=== PATIENT | female | born 1955 | race Caucasian/White ===

== ENCOUNTER 2020-09-12 09:27 | Outpatient (CLI) | payer BC, SELFPAY ==
--- NOTE | ~2020-09-12 | MM_ITS ---
EXAMINATION: MM screening naveen LT w trish HISTORY: Screening mammogram; status post right mastectomy in 2009 TECHNIQUE: Craniocaudal and mediolateral oblique 3-D tomosynthesis images were obtained and synthetic 2-D images were generated. CAD analysis was submitted and interpreted. COMPARISON: 06/20/2010 bilateral digital screening mammogram BREAST PARENCHYMAL COMPOSITION: The left breast is heterogeneously dense, which may obscure small mas ses. FINDINGS: There is no evidence of suspicious mass, calcification, or architectural distortion to sugg est malignancy. There has been no suspicious interval change. IMPRESSION: 1. No mammographic evidence of malignancy. 2. Recommend routine screening mammography in one year. BI-RADS Category 1: Negative left breast Status post right mastectomy Reviewed, dictated and finalized at location A. [employer]
== END 2020-09-12 09:28 | disposition home or self-care (01) ==
PROVIDERS: PCP Family Medicine; Visit Provider Family Medicine
DX: Z12.31 Encounter for screening mammogram for malignant neoplasm of breast (principal)
CPT/HCPCS: 77063; 77067

== ENCOUNTER 2021-12-11 08:25 | Outpatient (CLI) | payer BC, SELFPAY ==
--- NOTE | ~2021-12-11 | MM_ITS ---
EXAMINATION: MM screening naveen LT w trish HISTORY: Screening mammogram; status post right mastectomy in 2009 TECHNIQUE: Craniocaudal and mediolateral oblique 3-D tomosynthesis images were obtained and synthetic 2-D images were generated. CAD analysis was submitted and interpreted. COMPARISON: 09/08/2020 left screening mammogram BREAST PARENCHYMAL COMPOSITION: The breasts are heterogeneously dense, which may obscure small masses . FINDINGS: There is no evidence of suspicious mass, calcification, or architectural distortion to sugg est malignancy in either breast. There has been no suspicious interval change. IMPRESSION: 1. No mammographic evidence of malignancy. 2. Recommend routine screening mammography in one year. BI-RADS Category 1: Negative Reviewed, dictated and finalized at location A. 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
== END 2021-12-11 08:26 | disposition home or self-care (01) ==
LOC: ANHIMG 08:27
PROVIDERS: PCP Family Medicine; Visit Provider Physician Assistant
DX: Z12.31 Encounter for screening mammogram for malignant neoplasm of breast (principal)
CPT/HCPCS: 77063; 77067

== ENCOUNTER → 2022-02-06 12:04 | Outpatient (CLI) | payer BC, SELFPAY ==
--- NOTE | ~2022-02-06 | DEXA_ITS ---
Bone Density Report Name: NORIS BERMAN Age: 66 Sex: Female Ethnicity: White Date of : 1955 Indication: postmenopausal osteoporosis; monitoring treatment; prior fracture; Referring Provider: Cherelle Torres Study: Bone densitometry was performed. Exam Date: February 06, 2022 Accession number: [id number] Bone Density: Region BMD T-score Z-score Classification AP Spine (L1-L4) 0.796 -2.3 -0.6 Osteopenia Femoral Neck (Left) 0.643 -1.9 -0.4 Osteopenia Total Hip (Left) 0.754 -1.5 -0.3 Osteopenia Femoral Neck (Right) 0.739 -1.0 0.5 Normal Total Hip (Right) 0.829 -0.9 0.3 Normal Total Hip Mean 0.792 -1.2 0.0 Osteopenia World Health Organization criteria for BMD impression classify patients as: Normal (T-score at or above -1.0), Osteopenia (T-score between -1.0 and -2.5), or Osteoporosis (T-score at or below -2.5). 10-year Fracture Risk: FRAX not reported because: Treated for osteoporosis Previous Exams: Region Exam Age BMD T-score BMD Change BMD Change Date g/cm2 vs Baseline vs Previous AP Spine(L1-L4) 02/06/2022 66 0.796 -2.3 0.046* 0.052* 09/18/2017 62 0.744 -2.8 -0.006 -0.037* 09/05/2015 60 0.781 -2.4 0.031* 0.008 09/02/2013 58 0.773 -2.5 0.023* -0.027* 07/12/2011 56 0.799 -2.3 0.050* 0.069* 08/16/2009 54 0.730 -2.9 -0.019 -0.019 03/30/2008 52 0.749 -2.7 Total Hip(Left) 02/06/2022 66 0.754 -1.5 0.033* -0.033* 09/18/2017 62 0.788 -1.3 0.066* 0.010 09/05/2015 60 0.777 -1.4 0.056* -0.007 09/02/2013 58 0.784 -1.3 0.062* 0.058* 07/12/2011 56 0.726 -1.8 0.004 -0.052* 08/16/2009 54 0.778 -1.3 0.056* 0.056* 03/30/2008 52 0.722 -1.8 Total Hip(Right) 02/06/2022 66 0.829 -0.9 0.089* -0.001 09/18/2017 62 0.829 -0.9 0.090* 0.024 09/05/2015 60 0.806 -1.1 0.066* -0.011 09/02/2013 58 0.816 -1.0 0.076* 0.032* 07/12/2011 56 0.784 -1.3 0.044* -0.013 08/16/2009 54 0.797 -1.2 0.057* 0.057* 03/30/2008 52 0.740 -1.7 *Denotes significance at 95% confidence level, LSC for AP Spine = 0.022 g/cm2, LSC for Total Hip = 0.027 g/cm2 Clinical Information Provided by Patient: Has had a low trauma fracture Is
== END ==
PROVIDERS: PCP Family Medicine; Visit Provider Physician Assistant
DX: M81.0 Age-related osteoporosis without current pathological fracture (principal); M85.88 Other specified disorders of bone density and structure, other site; M85.852 Other specified disorders of bone density and structure, left thigh
CPT/HCPCS: 77080

== ENCOUNTER 2023-01-28 15:58 | Outpatient (CLI) | payer MEDICARE, BC, SELFPAY ==
--- NOTE | ~2023-01-28 | MM_ITS ---
EXAMINATION: MM screening naveen BI w trish HISTORY: Screening mammogram, status post right mastectomy TECHNIQUE: Craniocaudal and mediolateral oblique 3-D tomosynthesis images of the left breast were obt ained and synthetic 2-D images were generated. CAD analysis was submitted and interpreted. COMPARISON: 12/11/2021, 09/12/2020 BREAST PARENCHYMAL COMPOSITION:The breast is heterogeneously dense, which may obscure small masses. FINDINGS: No suspicious mass, calcification, or architectural distortion are identified in the left b reast to suggest malignancy. There has been no suspicious interval change. IMPRESSION: No mammographic evidence of malignancy. Recommend routine screening mammography in one year. BI-RADS Category 1: Negative Reviewed, dictated and finalized at location .
== END 2023-01-28 15:59 | disposition home or self-care (01) ==
PROVIDERS: PCP Family Medicine; Visit Provider Family Medicine
DX: Z12.31 Encounter for screening mammogram for malignant neoplasm of breast (principal)
CPT/HCPCS: 77063; 77067

== ENCOUNTER 2024-02-07 10:23 | Outpatient (CLI) | payer MEDICARE, BC, SELFPAY ==
--- NOTE | ~2024-02-07 | MM_ITS ---
EXAMINATION: MM screening naveen LT w trish HISTORY: Screening mammogram; status post right mastectomy in 2009. TECHNIQUE: Craniocaudal, rotated lateral craniocaudal and mediolateral oblique 3-D tomosynthesis imag es were obtained and synthetic 2-D images were generated. CAD analysis was submitted and interpreted. COMPARISON: January 28, 2023, December 11, 2021 left screening mammogram examinations BREAST PARENCHYMAL COMPOSITION: The left breast is heterogeneously dense, which may obscure small mas ses. FINDINGS: There is no evidence of suspicious mass, calcification, or architectural distortion to sugg est malignancy. There has been no suspicious interval change. IMPRESSION: 1. Status post right mastectomy. No mammographic evidence of malignancy on the left. 2. Recommend routine left screening mammography in one year. BI-RADS Category 1: Negative Reviewed, dictated and finalized at location A.
== END 2024-02-07 10:24 | disposition home or self-care (01) ==
LOC: ANHIMG 10:27
PROVIDERS: PCP Family Medicine; Visit Provider Family Medicine
DX: Z12.31 Encounter for screening mammogram for malignant neoplasm of breast (principal)
CPT/HCPCS: 77063; 77067

== ENCOUNTER 2025-02-10 14:40 | Outpatient (CLI) | payer MEDICARE, BC, SELFPAY ==
--- NOTE | ~2025-02-10 | MM_ITS ---
EXAMINATION: MM screening naveen LT w trish HISTORY: Screening TECHNIQUE: Craniocaudal and mediolateral oblique 3-D tomosynthesis images were obtained and synthetic 2-D images were generated. CAD analysis was submitted and interpreted. COMPARISON: Comparison to multiple prior studies sequentially, with oldest reviewed study dated 08/21. BREAST PARENCHYMAL COMPOSITION: Dense: The left breast is heterogeneously dense, which may obscure sm all masses FINDINGS: There is no evidence of suspicious mass, calcification, or architectural distortion to sugg est malignancy in either the left breast. There has been no suspicious interval change. IMPRESSION: 1. No mammographic evidence of malignancy. 2. Recommend routine screening mammography in one year. BI-RADS Category 1: Negative Reviewed, dictated and finalized at location A.
--- OUTSIDE RECORDS SUMMARY | 2025-02-10 15:53 | XMS_ITS | Clinical Summary ---
Author Organization [facility] Address [address] [place] [address] Phone Care Team Providers Care Machine Stuffer Name Role Phone Chadnan Barraza MD Primary Care Provider [phone] Allergies No known active allergies Medications MULTIVITAMINS WITH FLUORIDE (MULTI-VITAMIN ORAL)Indications :Malignant neoplasm of breast (female), unspecified site Take by mouth. Active CALCIUM CARBONATE/VITAMI N D3 (CALCIUM + D ORAL)Indications :Malignant neoplasm of breast (female), unspecified site Take by mouth. Active metroNIDAZOLE (METROCREAM) 0.75 % Topical CreaIndications: Malignant neoplasm of breast (female), unspecified site Apply to affected area 2 times daily. Active alendronate sodium (ALENDRONATE ORAL) Take by mouth. Active Active Problems Patient Care Coordination No te Formatting of this note migh t be different from the original. 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 S/P right mastectomy 08/10/2010 Breast cancer, stage 1, right 08/10/2010 Overview (05/17/2011): PATHOLOGY: Date: 07/04 bx, 08/01 mastectomy Breast: right Cell type: IDC ER: (+) 95% PA: (+) 5% Her2 maxi: amplified Grade: I Lymph node status:(-) 8/8 (3 SLN, 5 ALN) LVI: (not) present Staging: T1a N0 Mx Stage: I Osteoporosis Arthritis Overview (07/18/2010): IN HER NECK Rosacea Family History Medical History Relation Name Comments Cancer Other MATERNAL GREAT GRANDMOTH Relation Name Status Comments Other MATERNAL GREAT GRANDMOTH Alive Social History Tobacco Use Types Packs/Day Years Used Date Smoking Tobacco: Never Smokeless Tobacco: Never Tobacco Cessation:Counseling Given: No Alcohol Use Standard Drinks/Week Comments No 0 (1 standard drink = 0.6 oz pur e alcohol) Comments No Sex and Gender Information Value Date Recorded Sex Assigned at Not on file Legal Sex Female 5:56 AM SANDBLASTING SUPERVISOR Gender Identity Not on file Sexual Orientation Not on file Occupation Industry Job Start Date Job End Date Not on file Not on file Not on file Not on file Last Filed Vital Signs Vital Sign Reading Time Taken Comments Blood Pressure 99/68 09/07/2019 10:26 AM SANDBLASTING SUPERVISOR Pulse 81 09/07/2019 10:26 AM SANDBLASTING SUPERVISOR Temperature 36.7 C (98.1 F) 08/24/2018 10:57 AM SANDBLASTING SUPERVISOR Respiratory Rate 16 08/24/2018 10:57 AM SANDBLASTING SUPERVISOR Oxygen Saturation 100% 08/02/2010 8:39 AM CDT Inhaled Oxygen Concentration - - Weight 70.6 kg (155 lb 9.6 oz) 09/07/2019 10:26 AM SANDBLASTING SUPERVISOR Height 163.8 cm (5' 4.5 ) 09/07/2019 10:26 AM CS T Body Mass Index 26.3 09/07/2019 10:26 AM SANDBLASTING SUPERVISOR Plan of Treatment Health Maintenance Due Date Last Done Comments DTAP/TDAP/TD VACCINES (1 - Tdap) 1976 COLORECTAL SCREENING 2002 Colorectal Cancer Screening 2002 FIT-DNA Q 3 years 2002 FIT/FOBT Q 1 year 2002 Flex Sig/CT Colonography Q 5 years 2002 PNEUMOCOCCAL VACCINE 50+ YEA RS (1 of 1 - PCV) 2007 ZOSTER VACCINE (1 of 2) 2007 BREAST CANCER SCREENING 09/07/2020 09/07/20, 08/24/2018, 08/19/2017, Additional history exists OSTEOPOROSIS SCREENING 2022 07/12/2011, 2008 INFLUENZA VACCINE (#1) 2024 RSV VACCINE (60+ or ) (1 - 1-dose 75+ series) 2032 Procedures Procedure Name Priority Date/Time Associated Diagnosis Comments MAMMO DIAG UNI LEFT 3D RACQUEL W OR WO CAD Routine 09/07/2019 10:02 AM SANDBLASTING SUPERVISOR Malignant neoplasm of right breast, stage 1, estrogen receptor positive (CMS/HCC) XR DEXA BONE DENSITY AXIAL 1 OR MORE SITES Routine 07/12/2011 from Last 3 Months or Most Recently Relevant to Health Maintenance Results * MAMMO DIAG UNI LEFT 3D RACQUEL W OR WO CAD (09/07/2019 10:02 AM SANDBLASTING SUPERVISOR) Anatomical Region Laterality Modality Breast Left Mammography 09/07/2019 10:0 2 AM SANDBLASTING SUPERVISOR Impressions 09/07/2019 2:04 PM SANDBLASTING SUPERVISOR IMPRESSION: 1. No concerning developing abnormality identified. OVERALL FINAL ASSESSMENT: BI-RADS CATEGORY 1 - Negative. RECOMMENDATION: 1. Recommend annual mammography. Narrative 09/07/2019 2:04 PM SANDBLASTING SUPERVISOR LEFT DIAGNOSTIC DIGITAL MAMMOGRAM WITH 3D TOMOSYNTHESIS AND CAD DATE: 09/07/2019 10:02 AM DICTATION LOCATION: [facility] HISTORY: Personal history of right-sided breast cancer treated with mastectomy, yearly exam. TECHNIQUE: Digital diagnostic mammograms were obtained of the left breast. 2D and 3D acquisitions of the left breast were obtained. CAD was utilized. COMPARISON: 08/24/2018 dating back to 07/02/2013. BREAST COMPOSITION: Heterogeneously dense, which limits the sensitivity of mammography. FINDINGS: No dominant masses, suspicious calcifications, parenchymal asymmetry or areas of architectural distortion are identified in the left breast. Procedure Note Fortunato Taylor MD - 09/07/2019 LEFT DIAGNOSTIC DIGITAL MAMMOGRAM WITH 3D TOMOSYNTHESIS AND CAD DATE: 09/07/2019 10:02 AM DICTATION LOCATION: [facility] HISTORY: Personal history of right-sided breast cancer treated with mastectomy, yearly exam. TECHNIQUE: Digital diagnostic mammograms were obtained of the left breast. 2D and 3D acquisitions of the left breast were obtained. CAD was utilized. COMPARISON: 08/24/2018 dating back to 07/02/2013. BREAST COMPOSITION: Heterogeneously dense, which limits the sensitivity of mammography. FINDINGS: No dominant masses, suspicious calcifications, parenchymal asymmetry or areas of architectural distortion are identified in the left breast. IMPRESSION: 1. No concerning developing abnormality identified. OVERALL FINAL ASSESSMENT: BI-RADS CATEGORY 1 - Negative. RECOMMENDATION: 1. Recommend annual mammography. us Lissette V. Kosuri DO MAMMO ORDERABLES Final Resu lt * XR DEXA BONE DENSITY AXIAL 1 OR MORE SITES (07/12/2011) T-SCORE HIP EXTERNAL RADIOLOGY Anatomical Region Laterality Modality Other us Lissette V. Kosuri DO DIAGNOSTIC IMAGING ORDERABL ES Final Result from Last 3 Months or Most Recently Relevant to Health Maintenance Insurance [employer] Advance Directives For more information, please contact: [phone] * Full Code (Latest Code Status on File) Date Activated Date Inactivated Comments 08/01/2010 1:18 PM 10/17/2010 12:50 PM * Full Code Date Activated Date Inactivated Comments 08/01/2010 8:15 AM 08/01/2010 1:18 PM * Full Code Date Activated Date Inactivated Comments 08/01/2010 8:15 AM 08/01/2010 8:15 AM Care Teams Machine Stuffer Relationship Specialty Start Date End Date Chandan Barraza MD [address] [place] [phone] PCP - General Family Practice 08/13/16
== END 2025-02-10 14:41 | disposition home or self-care (01) ==
PROVIDERS: PCP Family Medicine; Visit Provider Family Medicine
DX: Z12.31 Encounter for screening mammogram for malignant neoplasm of breast (principal)
CPT/HCPCS: 77063; 77067

== ENCOUNTER 2025-05-10 22:00 | Emergency (ER) | payer MEDICARE, BC, SELFPAY ==
--- OUTSIDE RECORDS SUMMARY | 2025-05-10 22:01 | XMS_ITS | Clinical Summary ---
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 S/P right mastectomy 08/10/2010 Breast cancer, stage 1, right 08/10/2010 Overview (05/17/2011): PATHOLOGY: Date: 07/04 bx, 08/01 mastectomy Breast: right Cell type: IDC ER: (+) 95% NH: (+) 5% Her2 maxi: amplified Grade: I [...] on file Legal Sex Female 5:56 AM CHEMICAL SPRAYER Gender Identity Not on file Sexual Orientation Not on file Occupation Industry Job Start Date Job End Date Not on file Not on file Not on file Not on file Last Filed Vital Signs Vital Sign Reading Time Taken Comments Blood Pressure 99/68 09/07/2019 10:26 AM CHEMICAL SPRAYER Pulse 81 09/07/2019 10:26 AM CHEMICAL SPRAYER Temperature 36.7 C (98.1 F) 08/24/2018 10:57 AM CHEMICAL SPRAYER Respiratory Rate 16 08/24/2018 10:57 AM CHEMICAL SPRAYER Oxygen Saturation 100% 08/02/2010 8:39 AM CDT Inhaled Oxygen Concentration - - Weight 70.6 kg (155 lb 9.6 oz) 09/07/2019 10:26 AM CHEMICAL SPRAYER Height 163.8 cm (5' 4.5) 09/07/2019 10:26 AM CS T Body Mass Index 26.3 09/07/2019 10:26 AM CHEMICAL SPRAYER Plan of Treatment Health Maintenance Due Date [...] SCREENING 2022 07/12/2011, 2008 INFLUENZA VACCINE (#1) 2025 RSV VACCINE (60+ or ) (1 - 1-dose 75+ series) 2032 Procedures Procedure Name Priority Date/Time Associated Diagnosis Comments MAMMO DIAG UNI LEFT 3D RACQUEL W OR WO CAD Routine 09/07/2019 10:02 AM CHEMICAL SPRAYER Malignant neoplasm of right breast, stage 1, estrogen receptor positive (CMS/HCC) XR DEXA BONE DENSITY AXIAL 1 OR MORE SITES Routine 07/12/2011 from Last 3 Months or Most Recently Relevant to Health Maintenance Results * MAMMO DIAG UNI LEFT 3D RACQUEL W OR WO CAD (09/07/2019 10:02 AM CHEMICAL SPRAYER) Anatomical Region Laterality Modality Breast Left Mammography 09/07/2019 10:0 2 AM CHEMICAL SPRAYER Impressions 09/07/2019 2:04 PM CHEMICAL SPRAYER IMPRESSION: 1. No concerning developing abnormality identified. OVERALL FINAL ASSESSMENT: BI-RADS CATEGORY 1 - Negative. RECOMMENDATION: 1. Recommend annual mammography. Narrative 09/07/2019 2:04 PM CHEMICAL SPRAYER LEFT DIAGNOSTIC DIGITAL MAMMOGRAM WITH 3D TOMOSYNTHESIS AND CAD DATE: 09/07/2019 10:02 AM DICTATION LOCATION: [facility] HISTORY: Personal history of right-sided breast [...] CAD DATE: 09/07/2019 10:02 AM DICTATION LOCATION: [facility] HISTORY: Personal history of right-sided breast [...] Advance Directives For more information, please contact: [phone] * Full Code (Latest Code Status on File) Date Activated Date Inactivated Comments 08/01/2010 1:18 PM 10/17/2010 12:50 PM * Full Code Date Activated Date Inactivated Comments 08/01/2010 8:15 AM 08/01/2010 1:18 PM * Full Code Date Activated Date Inactivated Comments 08/01/2010 8:15 AM 08/01/2010 8:15 AM Care Teams Microfabrication Engineer Manager Relationship Specialty Start Date End Date Chandan Barraza MD [address] [place] [phone] PCP - General Family Practice 08/13/16
[2025-05-10 22:19] VITALS: BP 132/74; PULSE 95; RESP 16; TEMP 36.9; O2SAT 100
--- OUTSIDE RECORDS SUMMARY | 2025-05-11 04:20 | XMS_ITS | Clinical Summary ---
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 S/P right mastectomy 08/10/2010 Breast cancer, stage 1, right 08/10/2010 Overview (05/17/2011): PATHOLOGY: Date: 07/04 bx, 08/01 mastectomy Breast: right Cell type: IDC ER: (+) 95% MO: (+) 5% Her2 maxi: amplified Grade: I [...] on file Legal Sex Female 5:56 AM HOME SCHOOL TEACHER Gender Identity Not on file Sexual Orientation Not on file Occupation Industry Job Start Date Job End Date Not on file Not on file Not on file Not on file Last Filed Vital Signs Vital Sign Reading Time Taken Comments Blood Pressure 99/68 09/07/2019 10:26 AM HOME SCHOOL TEACHER Pulse 81 09/07/2019 10:26 AM HOME SCHOOL TEACHER Temperature 36.7 C (98.1 F) 08/24/2018 10:57 AM HOME SCHOOL TEACHER Respiratory Rate 16 08/24/2018 10:57 AM HOME SCHOOL TEACHER Oxygen Saturation 100% 08/02/2010 8:39 AM CDT Inhaled Oxygen Concentration - - Weight 70.6 kg (155 lb 9.6 oz) 09/07/2019 10:26 AM HOME SCHOOL TEACHER Height 163.8 cm (5' 4.5) 09/07/2019 10:26 AM CS T Body Mass Index 26.3 09/07/2019 10:26 AM HOME SCHOOL TEACHER Plan of Treatment Health Maintenance Due Date [...] OR WO CAD Routine 09/07/2019 10:02 AM HOME SCHOOL TEACHER Malignant neoplasm of right breast, stage 1, estrogen receptor positive (CMS/HCC) XR DEXA BONE DENSITY AXIAL 1 OR MORE SITES Routine 07/12/2011 from Last 3 Months or Most Recently Relevant to Health Maintenance Results * MAMMO DIAG UNI LEFT 3D RACQUEL W OR WO CAD (09/07/2019 10:02 AM HOME SCHOOL TEACHER) Anatomical Region Laterality Modality Breast Left Mammography 09/07/2019 10:0 2 AM HOME SCHOOL TEACHER Impressions 09/07/2019 2:04 PM HOME SCHOOL TEACHER IMPRESSION: 1. No concerning developing abnormality identified. OVERALL FINAL ASSESSMENT: BI-RADS CATEGORY 1 - Negative. RECOMMENDATION: 1. Recommend annual mammography. Narrative 09/07/2019 2:04 PM HOME SCHOOL TEACHER LEFT DIAGNOSTIC DIGITAL MAMMOGRAM WITH 3D TOMOSYNTHESIS AND CAD DATE: 09/07/2019 10:02 AM DICTATION LOCATION: [facility] HISTORY: Personal history of right-sided breast [...] CAD DATE: 09/07/2019 10:02 AM DICTATION LOCATION: [facility] HISTORY: Personal history of right-sided breast [...] Advance Directives For more information, please contact: [phone] * Full Code (Latest Code Status on File) Date Activated Date Inactivated Comments 08/01/2010 1:18 PM 10/17/2010 12:50 PM * Full Code Date Activated Date Inactivated Comments 08/01/2010 8:15 AM 08/01/2010 1:18 PM * Full Code Date Activated Date Inactivated Comments 08/01/2010 8:15 AM 08/01/2010 8:15 AM Care Teams Financial Services Technician Relationship Specialty Start Date End Date Chandan Barraza MD [address] [place] [phone] PCP - General Family Practice 08/13/16
--- NOTE | 2025-05-11 04:38 | ED_ITS ---
HPI - Skin/Abscess/Foreign Bdy General Chief complaint: Skin/Abscess/Foreign Body Stated complaint: bee sting and arm redness Time Seen by Provider: 05/11/25 03:48 History of Present Illness HPI narrative: 69-year-old female presenting for allergic reaction to a bee sting that happened earlier last morning. Patient states she went to urgent care was given prednisone 20 mg as well as ibuprofen. She states that she took this medication and the rash did not go down. She has a localized urticarial rash that is itchy to the right upper extremity in the ventral forearm or she was stung tracking slightly towards her elbow. No systemic features such as shortness of breath, trouble breathing, throat closing sensations, diarrhea, abdominal upset, nausea, vomiting. Was otherwise in her normal state of health. Symptoms have not progressed for several hours. This patient was just concerned because she has had a mastectomy on that side with lymph node removal. Related Data Allergies Allergy/AdvReac Type Severity Reaction Status Date / Time No Known Allergies Allergy Unknown Verified 05/10/25 22:00 Review of Systems Review of Systems: As reviewed above in HPI [facility] Past Medical History Medical History Personal history of breast cancer Surgical History Surgical History History of right mastectomy 08/01/2010 History of open reduction and internal fixation (ORIF) procedure Left ankle fracture 11/2003 History of breast biopsy 1976, 1978, 1987. 07/04/2010 Family History Family History Mother Family history of diabetes mellitus in first degree relative Grandparent Diabetes mellitus Family history of malignant neoplasm of male breast Father Ruptured abdominal aortic aneurysm Grandparent Heart disease Diabetes mellitus Social History Social History Smoking status: Never smoker Alcohol intake: never Substance use: never Substance use type: does not use Do You Feel Safe in your Home?: Yes Lack of Transportation: No Lack of Food: Never True Current Housing: I Have Housing Concerned About Future Housing: No Difficulty Paying Gas/Electric Bills: No Difficulty Paying for Meds: No Currently Unemployed: No Education: Bachelor's Degree Difficulty w/ Childcare or Family Care: No Living arrangements: with family Occupation/Education: retired Gender identity (if verbalized by the patient): Female Sexual Orientation (if Verbalized by the Patient): Straight or Heterosexual Exam Narrative: GENERAL: [Well-appearing, well-nourished, and in no acute distress.] HEAD: [Normocephalic, atraumatic.] EYES: [PERRLA and EOMI.] ENT: Nares clear, no rhinorrhea or epistaxis. Mucous membranes moist. NECK: Supple. CHEST: [Clear to auscultation. No respiratory distress.] HEART: [Regular rate and rhythm]. No murmur heard. [Normal peripheral pulses.] ABDOMEN: [Soft, nondistended], [nontender], [No rigidity or guarding] EXTREMITIES: Normal range of motion. [No edema.] SKIN: Simple urticarial appearing rash the ventral right forearm from the wrist up to the elbow. No streaking redness or signs of cellulitis. Urticaria blanches with pressure. Distal neuro vasculature intact. Warm extremity. No signs of circumferential swelling or lymphatic streaking NEURO: [No focal deficits]. Alert and oriented [x3.] PSYCH: [Normal mood and affect.] Course Vital Signs Vital signs: Vital Signs Temperature 36.9 C 05/10/25 22:19 Pulse Rate 95 05/10/25 22:19 Respiratory Rate 16 05/10/25 22:19 Blood Pressure 132/74 05/10/25 22:19 Pulse Oximetry 100 05/10/25 22:19 Oxygen Delivery Room Air 05/10/25 22:19 Temperature 36.9 C 05/10/25 22:19 Pulse Rate 95 05/10/25 22:19 Respiratory Rate 16 05/10/25 22:19 Blood Pressure 132/74 05/10/25 22:19 Pulse Oximetry 100 05/10/25 22:19 Oxygen Delivery Room Air 05/10/25 22:19 MDM - Skin/Abscess/Foreign Bdy MDM Narrative Medical decision making narrative: 69-year-old female presenting for allergic reaction to a bee sting that happened earlier last morning. Patient states she went to urgent care was given prednisone 20 mg as well as ibuprofen. She states that she took this medication and the rash did not go down. She has a localized urticarial rash that is itchy to the right upper extremity in the ventral forearm or she was stung tracking slightly towards her elbow. No systemic features such as shortness of breath, trouble breathing, throat closing sensations, diarrhea, abdominal upset, nausea, vomiting. Was otherwise in her normal state of health. Symptoms have not progressed for several hours. This patient was just concerned because she has had a mastectomy on that side with lymph node removal. Examination reveals simple urticarial appearing rash the ventral right forearm from the wrist up to the elbow. No streaking redness or signs of cellulitis. Urticaria blanches with pressure. Distal neuro vasculature intact. Warm extremity. No signs of circumferential swelling or lymphatic streaking. No signs of active infection. She is afebrile with normal vital signs. She was treated with diphenhydramine and Pepcid and sent home with prescriptions to take in addition to her prednisone at home. Patient given return precautions and discharge instructions. Medical Records Attestation: I reviewed the patient's medical records. Discharge Plan Discharge Clinical Impression: Urticaria, Allergy to bee sting Patient Disposition: Home Condition: Stable Instructions: Antibiotic Form, Urticaria (ED), Cold Compress or Soak (ED) Additional Instructions: You have a simple appearing urticarial rash in the right upper extremity reactive to the histamine release from a localized to bee sting. No signs of any emergency and no signs version concern eating antibiotics. The lymphatic system in that area takes a while to drain especially with your history of mastectomy. We will send you home with additional medications including diphenhydramine and Pepcid to be taken in addition to the prednisone and ibuprofen at home. This combination medications can help reduce the inflammation and swelling in that area. Avoid getting stung by another bee. Return if you experience symptoms of anaphylaxis such as difficulty breathing, throat closing sensations, diarrhea, nauseousness and vomiting or any other emergent concerns. Patient Language: Uzbek Prescriptions: New diphenhydramine HCl 25 mg capsule 25 mg PO TID PRN (Reason: allergy symptoms) Qty: 30 0RF famotidine [Pepcid] 20 mg tablet 20 mg PO BID PRN (Reason: Allergic Symptoms) Qty: 20 0RF No Action metronidazole 0.75 % gel See Rx Instructions .ROUTE .COMPLEX Qty: 45 0RF Dose Instruction: APPLY TO THE AFFECTED AREA TWICE DAILY Rx Instructions: APPLY TO THE AFFECTED AREA TWICE DAILY alendronate 70 mg tablet 70 mg PO WEEKLY Qty: 16 1RF Follow-up/Referrals: Chandan Barraza MD [Primary Care Provider] - Time of Disposition: 04:37
[2025-05-11] MEDS: diphenhydrAMINE HCl CAP 25 MG CAPSULE 50 MG PO (04:43)
[2025-05-11] MEDS: FAMOTIDINE 20 MG TABLET PO (04:43)
[2025-05-11 04:48] VITALS: BP 122/83; PULSE 89; RESP 18; O2SAT 100
== END 2025-05-11 04:48 | disposition home or self-care (01) ==
PROVIDERS: Emergency Provider Student in an Organized Health Care Education/Training Program; PCP Family Medicine
DX: T63.441A Toxic effect of venom of bees, accidental (unintentional), initial encounter (principal); L50.0 Allergic urticaria; Z85.3 Personal history of malignant neoplasm of breast; Z90.11 Acquired absence of right breast and nipple
CPT/HCPCS: 99283; A9270

== ENCOUNTER 2025-08-17 11:03 | Outpatient (CLI) | payer MEDICARE, BC, SELFPAY ==
--- NOTE | ~2025-08-17 | XR_ITS ---
EXAMINATION: XR hip LT 2V w AP pelvis, 08/17/2025 11:10 CDT HISTORY: LT HIP PAIN GOES DOWN INTO LEFT LEG x1 WK COMPARISON: No comparisons available. Findings: No acute fracture or malalignment. No significant degenerative changes. Soft tissues unremarkable. Impression: No acute fracture or malalignment. Reviewed, dictated and finalized at location P. Impression: No acute fracture or malalignment.
--- NOTE | ~2025-08-17 | XR_ITS ---
XR lumbar spine 2-3V Indication: M54.50 - Low back pain, LT HIP PAIN x1 WK Comparison: None Findings: The vertebral heights are intact. No fracture or subluxation. The disc heights are intact. Soft tissues unremarkable Impression: No acute abnormality. Reviewed, dictated and finalized at location P. Impression: No acute abnormality.
== END 2025-08-17 11:04 | disposition home or self-care (01) ==
LOC: MICIMG 11:06
PROVIDERS: PCP Family Medicine
DX: M54.50 Low back pain, unspecified (principal); M25.552 Pain in left hip
CPT/HCPCS: 72100; 73502